=== PATIENT | male | born 1970 | race Native Hawaiian/Other Pacific Islander ===

== ENCOUNTER 2023-05-27 10:31 | Outpatient (CLI) | payer OTHER | END 2023-05-27 19:29 | disposition home or self-care (01) | LOC: LABW 10:31 | PROVIDERS: ATTEND Internal Medicine Gastroenterology | DX: K57.81 Diverticulitis of intestine, part unspecified, with perforation and abscess with bleeding (principal) | CPT/HCPCS: 36415; 82172; 82247; 82465; 82947; 82977; 83010; 83883; 84450; 84460; 84478 ==